=== PATIENT | female | born 1990 | race American Indian/Alaskan Native ===

== ENCOUNTER 2017-12-30 09:37 | Outpatient (CLI) | payer MEDICAID ==
[2017-12-30 10:26] VITALS: BP 100/53
[2017-12-30] MEDS ORDERED: LACTATED RINGERS 500 ML IV ONE (10:54)
[2017-12-30] MEDS ORDERED: ZOFRAN ODT PO ONE (12:46)
[2017-12-30] MEDS ORDERED: MILK OF MAGNESIA PO ONE (12:46)
== END 2017-12-30 13:05 | disposition home or self-care (01) ==
LOC: TRG 09:37
PROVIDERS: ATTEND Obstetrics & Gynecology
DX: O47.02 False labor before 37 completed weeks of gestation, second trimester (principal); Z3A.26 26 weeks gestation of pregnancy
CPT/HCPCS: 59025; Q0162